=== PATIENT | female | born 1980 | race American Indian/Alaskan Native ===

== ENCOUNTER 2020-05-01 23:33 | Emergency (ER) | payer SELFPAY ==
[2020-05-02 02:29] VITALS: BP 111/74
[2020-05-02] MEDS ORDERED: GENTAMICIN 0.3% OPHTH OINT 3.5 GM OU ONE (04:27)
[2020-05-02] MEDS ORDERED: IBUPROFEN 600 MG TAB PO ONE (04:27)
--- NOTE | 2020-05-02 05:01 | Emergency Department Report ---
ED Eye Problem HPI - General Chief complaint: Eye Problems Stated complaint: BILATERAL PINK EYE Source: patient Mode of arrival: Ambulatory Limitations: No Limitations - History of Present Illness Initial comments: Patient is a 39-year-old -[place] female with no past medical history who presents to the ED with complaint of acute onset persistent severe bilateral eye pain with redness and purulent discharge for the last 2 days. Patient states that the pain has worsened especially in the last 12 hours such that she developed photophobia and that the discharge has been significantly increased as well. Patient states that no one else at home or at work is had similar symptoms. Patient denies vision loss or vision changes, nausea, vomiting, chest pain or shortness of breath, nasal and sinus congestion, change in vision, traumatic injury or fall. MD chief complaint: eye pain, eye redness (Bilateral) -: Sudden, days(s) (2) Onset Description: sudden, unknown, awoke with symptoms Location: right eye, left eye, both eyes Place: work If Injury: none Eye Symptoms: burning, redness, pain, itching, discharge, photophobia Severity: severe Severity scale (0 -10): 7 If Pain, Quality: sharp, burning Consistency: constant Associated Symptoms: none. denies: headache, nausea/vomiting, cough, rhinorrhea, fever, shortness of breath Treatments Prior to Arrival: none - Related Data Patient Tetanus UTD: Yes Previous Rx's Medication Instructions Recorded Last Taken Type Loratadine (Nf) [Claritin] 10 mg PO DAILY #20 tablet 14 11/27/13 Rx Cyclobenzaprine [Flexeril 10mg] 10 mg PO TID PRN #30 tablet 11/29/13 Unknown Rx HYDROcodone/APAP 7.5-325 [[place] 1 each PO Q8HR PRN #10 tablet 11/29/13 Unknown Rx 7.5-325 mg TAB] Ibuprofen [Motrin] 400 mg PO Q8H #30 tablet 11/29/13 Unknown Rx Acetaminophen/Codeine [Tylenol #3] 1 tab PO Q6H PRN #20 tab 01/15/15 Unknown Rx Vit-Fe Fumar-FA [ 1 tab PO QDAY #90 tablet 01/15/15 Unknown Rx Vitamin] cephALEXin [Keflex] 500 mg PO Q6HR #28 capsule 01/15/15 Unknown Rx metroNIDAZOLE 0.75%(NF) [Metrogel 1 applicatio TP QHS #5 tube 01/15/15 Unknown Rx 0.75% TOPICAL] Gentamicin 0.3% Ophth Soln 1 drops OP Q4H #5 ml 05/02/20 Unknown Rx Ibuprofen [Motrin] 600 mg PO Q8H PRN #24 tablet 05/02/20 Unknown Rx Allergies Allergy/AdvReac Type Severity Reaction Status Date / Time shrimp Allergy Swelling Uncoded 11/29/13 18:07 ED Review of Systems ROS: Stated complaint: BILATERAL PINK EYE Other details as noted in HPI Constitutional: denies: chills, fever Eyes: eye pain (Bilateral), eye discharge (Bilateral). denies: vision change ENT: denies: ear pain, throat pain Respiratory: denies: cough, shortness of breath, wheezing Cardiovascular: denies: chest pain, palpitations Endocrine: no symptoms reported Gastrointestinal: denies: abdominal pain, nausea, diarrhea Genitourinary: denies: urgency, dysuria, discharge Musculoskeletal: denies: back pain, joint swelling, arthralgia Skin: denies: rash, lesions Neurological: denies: headache, weakness, paresthesias Psychiatric: denies: anxiety, depression Hematological/Lymphatic: denies: easy bleeding, easy bruising ED Past Medical Hx - Past Medical History Hx Hypertension: No Hx CVA: No Hx Heart Attack/AMI: No Hx Congestive Heart Failure: No Hx Diabetes: No Hx Deep Vein Thrombosis: No Hx Pulmonary Embolism: No Hx GERD: No Hx Liver Disease: No Hx Renal Disease: No Hx Sickle Cell Disease: No Hx Arthritis: No Hx Headaches / Migraines: No Hx Seizures: No Hx Kidney Stones: No Hx Psychiatric Treatment: No Hx Asthma: No Hx COPD: No Hx Tuberculosis: No Hx Dementia: No Hx HIV: No Additional medical history: Vaginal delivery x 5 - Surgical History Hx Coronary Stent: No Hx Open Heart Surgery: No Hx Pacemaker: No Hx Internal Defibrillator: No Hx Cholecystectomy: No Hx Appendectomy: No Hx Breast Surgery: No Additional Surgical History: Tubaligation - Social History Smoking Status: Current Every Day Smoker Substance Use Type: None - Medications Home Medications: Home Medications Medication Instructions Recorded Confirmed Last Taken Type Loratadine (Nf) [Claritin] 10 mg PO DAILY #20 tablet 08/24/13 11/29/13 11/27/13 Rx Cyclobenzaprine [Flexeril 10mg] 10 mg PO TID PRN #30 tablet 11/29/13 Unknown Rx HYDROcodone/APAP 7.5-325 [[place] 1 each PO Q8HR PRN #10 tablet 11/29/13 Unknown Rx 7.5-325 mg TAB] Ibuprofen [Motrin] 400 mg PO Q8H #30 tablet 11/29/13 Unknown Rx Acetaminophen/Codeine [Tylenol #3] 1 tab PO Q6H PRN #20 tab 01/15/15 Unknown Rx Vit-Fe Fumar-FA [ 1 tab PO QDAY #90 tablet 01/15/15 Unknown Rx Vitamin] cephALEXin [Keflex] 500 mg PO Q6HR #28 capsule 01/15/15 Unknown Rx metroNIDAZOLE 0.75%(NF) [Metrogel 1 applicatio TP QHS #5 tube 01/15/15 Unknown Rx 0.75% TOPICAL] Gentamicin 0.3% Ophth Soln 1 drops OP Q4H #5 ml 05/02/20 Unknown Rx Ibuprofen [Motrin] 600 mg PO Q8H PRN #24 tablet 05/02/20 Unknown Rx ED Physical Exam - General Limitations: No Limitations General appearance: alert, in no apparent distress - Head Head exam: Present: atraumatic, normocephalic, normal inspection - Eye Eye exam: Present: normal appearance, PERRL, EOMI, other (Erythematous bilateral conjunctival with thick purulent discharge) Pupils: Present: normal accommodation - ENT ENT exam: Present: normal exam, normal orophraynx, mucous membranes moist, TM's normal bilaterally, normal external ear exam - Neck Neck exam: Present: normal inspection, full ROM - Respiratory Respiratory exam: Present: normal lung sounds bilaterally. Absent: respiratory distress, wheezes, rales, rhonchi, chest wall tenderness, accessory muscle use, decreased breath sounds - Cardiovascular Cardiovascular Exam: Present: regular rate, normal rhythm, normal heart sounds. Absent: systolic murmur, diastolic murmur, rubs, gallop - GI/Abdominal GI/Abdominal exam: Present: soft, normal bowel sounds. Absent: tenderness, guarding, hyperactive bowel sounds, hypoactive bowel sounds, organomegaly - Extremities Exam Extremities exam: Present: normal inspection, full ROM, normal capillary refill - Back Exam Back exam: Present: normal inspection, full ROM. Absent: tenderness, CVA tenderness (R), CVA tenderness (L), muscle spasm, paraspinal tenderness - Neurological Exam Neurological exam: Present: alert, oriented X3, CN II-XII intact, normal gait, reflexes normal - Psychiatric Psychiatric exam: Present: normal affect, normal mood - Skin Skin exam: Present: warm, dry, intact, normal color. Absent: rash ED Course Vital Signs 05/02/20 01:54 Temperature 97.7 F Pulse Rate 88 Respiratory 18 Rate Blood Pressure 111/74 O2 Sat by Pulse 99 Oximetry ED Medical Decision Making - Medical Decision Making This is a 39-year-old -[place] female with no past medical history who presents to the ED with complaint of acute onset persistent severe bilateral eye pain with redness and purulent discharge for the last 2 days. Patient states that the pain has worsened especially in the last 12 hours such that she developed photophobia and that the discharge has been significantly increased as well. Patient states that no one else at home or at work is had similar symptoms. In the ED, patient is alert and oriented x3 and is not in distress. Patient was treated for pain in the ED and was discharged home on pain medication and antibiotics. Patient was advised return to the ED immediately if symptoms get worse. Patient was otherwise advised to follow-up with her primary care physician in 5 to 7 days for reevaluation. - Differential Diagnosis Bacterial conjunctivitis, viral conjunctivitis, viral keratitis, allergies Critical care attestation.: If time is entered above; I have spent that time in minutes in the direct care of this critically ill patient, excluding procedure time. ED Disposition Clinical Impression: Acute bacterial conjunctivitis of both eyes Disposition: TO HOME OR SELFCARE Is pt being admited?: No Does the pt Need Aspirin: No Condition: Stable Instructions: Bacterial Conjunctivitis, Adult Additional Instructions: Take medication for pain, apply the antibiotic eye drops as advised, follow-up with your primary care physician in 5 to 7 days for reevaluation. Return to the ED immediately if symptoms get worse. Prescriptions: Gentamicin 0.3% Ophth Soln 1 drops OP Q4H #5 ml Ibuprofen [Motrin] 600 mg PO Q8H PRN #24 tablet PRN Reason: Pain Referrals: [facility] [Outside] - 3-5 Days Forms: Work/School Release Form(ED) Time of Disposition: 05:01 Print Language: PRYDEINIG
== END 2020-05-02 05:50 | disposition home or self-care (01) ==
LOC: ED 23:33
DX: H10.89 Other conjunctivitis (principal); F17.200 Nicotine dependence, unspecified, uncomplicated; Z98.51 Tubal ligation status; Z91.013 Allergy to seafood
CPT/HCPCS: 99282